=== PATIENT | female | born 1990 | race African-American/Black ===

== ENCOUNTER 2019-08-05 00:13 | Emergency (ER) | payer OTHER ==
[2019-08-05 00:18] VITALS: BP 117/75; RESP 18; TEMP 99
--- NOTE | 2019-08-05 01:12 | ED ---
General Adult HPI - General Chief complaint: Needlestick/Exposure Stated complaint: needlestick, [facility] Time Seen by Provider: 08/05/19 00:47 Source: patient Mode of arrival: ambulatory Limitations: no limitations - History of Present Illness Initial comments: 28-year-old female patient presents to the emergency department today for evaluation after a needlestick injury at work. Patient states she accidentally stuck her index finger with an insulin needle prior to arrival. States she did cleanse the area. She is up to date on her tetanus and hepatitis B vaccines. The source has no known infectious diseases. She did bring source blood for testing. She denies any other symptoms or concerns. - Related Data Home Medications Medication Instructions Recorded Confirmed Levothyroxine Sodium [Synthroid] 88 mcg PO DAILY 09/08/15 09/30/15 Vit No.124/Iron/Folic 1 each PO DAILY 09/08/15 09/30/15 [ Vitamin Tablet] Progesterone [First-Progesterone 200 mg VAGINAL DAILY 09/08/15 09/30/15 Vgs 200] Previous Rx's Medication Instructions Recorded Acetaminophen-Codeine 300-30mg 1 each PO Q4HR PRN #30 tab 10/03/15 [Tylenol w/codeine #3] Ibuprofen [Motrin] 600 mg PO Q6HR PRN #60 tab 10/03/15 Allergies Allergy/AdvReac Type Severity Reaction Status Date / Time No Known Allergies Allergy Verified 09/30/15 20:59 Review of Systems ROS Statement: Those systems with pertinent positive or pertinent negative responses have been documented in the HPI. ROS Other: All systems not noted in ROS Statement are negative. Past Medical History Past Medical History: Thyroid Disorder Additional Past Medical History / Comment(s): Hypothryroid History of Any Multi-Drug Resistant Organisms: None Reported Past Surgical History: No Surgical Hx Reported Additional Past Surgical History / Comment(s): Had a Cerclage placed with this - 2014 Past Anesthesia/Blood Transfusion Reactions: No Reported Reaction Past Psychological History: No Psychological Hx Reported Smoking Status: Never smoker - Past Family History Mother Family Medical History: No Reported History, Asthma, Chest Pain / Angina, Hypertension, Myocardial Infarction ([place]) General Exam Limitations: no limitations General appearance: alert, in no apparent distress Respiratory exam: Present: normal lung sounds bilaterally. Absent: respiratory distress, wheezes, rales, rhonchi, stridor Cardiovascular Exam: Present: regular rate, normal rhythm, normal heart sounds. Absent: systolic murmur, diastolic murmur, rubs, gallop, clicks Extremities exam: Present: normal inspection, full ROM, normal capillary refill. Absent: tenderness, pedal edema, joint swelling, calf tenderness Neurological exam: Present: alert, oriented X3, CN II-XII intact Psychiatric exam: Present: normal affect, normal mood Skin exam: Present: warm, dry, intact, normal color. Absent: rash Course Vital Signs 08/05/19 08/05/19 00:16 01:50 Temperature 99.0 F Pulse Rate 84 78 Respiratory 18 Rate Blood Pressure 117/75 O2 Sat by Pulse 99 100 Oximetry Medical Decision Making - Medical Decision Making 28-year-old female patient presents to the emergency department today for evaluation after experiencing a needlestick injury. We did drop patient's blood for baseline labs. We did have sore spelled available however the rapid HIV testing was not possible with the blood available. Source to be redrawn in the morning to perform rapid test tomorrow. I did inform patient that we will contact her with HIV results and provide prophylaxis of necessary. She'll be discharged to follow-up with employee health services for further evaluation. Return parameters were discussed in detail. She verbalizes understanding and agrees with this plan. Disposition Clinical Impression: Needlestick injury accident Disposition: HOME SELF-CARE Condition: Good Instructions (If sedation given, give patient instructions): Body Substance Exposure (ED) Additional Instructions: Await phone call regarding patient's HIV status. You may have to return for lab testing and prescription for prevention. Follow up with employee health services for further testing. Return to the emergency department for any new, worsening, or concerning symptoms. Is patient prescribed a controlled substance at d/c from ED?: No Referrals: William Levine MD [Primary Care Provider] - 1-2 days Time of Disposition: 01:12
[2019-08-05 01:51] VITALS: PULSE 78
[2019-08-05 14:25] LABS: Hepatitis B Surface AB- Quant 699.4 mIU/mL; Hepatitis B Surface Antibody Reactive (Non-Reactive); Hepatitis C IgG Antibody Non-Reactive (Non-Reactive)
[2019-08-06 11:45] LABS: HIV 1 AB Non-Reactive (Non-Reactive); HIV 2 AB Non-Reactive (Non-Reactive); HIV AB P24 Non-Reactive (Non-Reactive); HIV P24 AG Non-Reactive (Non-Reactive)
== END 2019-08-05 01:51 | disposition home or self-care (01) ==
LOC: EC 00:13
DX: Z77.21 Contact with and (suspected) exposure to potentially hazardous body fluids (principal); E03.9 Hypothyroidism, unspecified; Z79.3 Long term (current) use of hormonal contraceptives; W46.0XXA Contact with hypodermic needle, initial encounter; Y99.0 Civilian activity done for income or pay
CPT/HCPCS: 36415; 86706; 86803; 87390; 99283

== ENCOUNTER → 2020-05-21 | Outpatient (CLI) | payer BC ==
--- NOTE | 2020-05-21 17:38 | ECHOF ---
Referral Reason:R07.9 chest pain MEASUREMENTS -------- HEIGHT: 170.2 cm WEIGHT: 83.0 kg BP: RVIDd: 2.6 cm (< 3.3) IVSd: 1.1 cm (0.6 - 1.1) LVIDd: 3.4 cm (3.9 - 5.3) LVPWd: 1.2 cm (0.6 - 1.1) IVSs: 1.4 cm LVIDs: 2.9 cm LVPWs: 1.5 cm LAESV Index (A-L): 20.01 ml/m Ao Diam: 2.8 cm (2.0 - 3.7) AV Cusp: 2.1 cm (1.5 - 2.6) LA Diam: 2.8 cm (2.7 - 3.8) MV EXCURSION: 19.740 mm (> 18.000) MV EF SLOPE: 140 mm/s (70 - 150) EPSS: 0.4 cm MV E Armand: 0.89 m/s MV DecT: 137 ms MV A Armand: 0.71 m/s MV E/A Ratio: 1.25 RAP: 5.00 mmHg RVSP: 31.29 mmHg FINDINGS -------- Sinus rhythm. This was a technically adequate study. The left ventricular size is normal. Left ventricular wall thickness is normal. Overall left vent ricular systolic function is normal with, an EF between 55 - 60 %. The diastolic filling pattern is normal for the age of the patient 7.43. The right ventricle is normal in size. Normal LA size by volume 22+/-6 ml/m2. The right atrial size is normal. Interatrial and interventricular septum intact. The aortic valve is trileaflet, and appears structurally normal. No aortic stenosis or regurgitation. The mitral valve leaflets are mildly thickened. Mild mitral regurgitation is present. The tricuspid valve appears structurally normal. Mild tricuspid regurgitation present. Right vent ricular systolic pressure is normal at < 35 mmHg. There is no pulmonic regurgitation present. The aortic root size is normal. Normal inferior vena cava with normal inspiratory collapse consistent with estimated right atrial pre ssure of 5 mmHg. There is no pericardial effusion. CONCLUSIONS -------- 1. Left ventricular wall thickness is normal. 2. Overall left ventricular systolic function is normal with, an EF between 55 - 60 %. 3. The diastolic filling pattern is normal for the age of the patient 7.43 4. Normal LA size by volume 22+/-6 ml/m2. 5. The aortic valve is trileaflet, and appears structurally normal. No aortic stenosis or regurgitati on. 6. The mitral valve leaflets are mildly thickened. 7. Mild mitral regurgitation is present. 8. Mild tricuspid regurgitation present. 9. There is no pulmonic regurgitation present. 10. There is no pericardial effusion. FORESTER AIDE: Gudelia Martin RDCS
--- NOTE | 2020-05-24 10:46 | EST ---
EXERCISE STRESS PROCEDURE PERFORMED: Exercise treadmill stress test. INDICATION: Chest pain. STRESS DATA: Heart rate 83, pressure is 102/59 mmHg. Baseline EKG showed sinus rhythm. The patient exercised on the treadmill according to Ron protocol for a total of 7 minutes and achieved 8.05 METS. Max heart rate was 176, which is about 88% of maximum predicted heart rate. Maximum blood pressure was 141/48 mmHg. Clinically the patient did not have any symptoms of chest pain or chest discomfort during the testing or on recovery and the EKG showed mild ST-segment changes, most prominent in the inferior leads. CONCLUSION: 1. Excellent exercise tolerance. 2. Mild EKG changes in response to exercise. MMODL / IJN: [id number] /
== END | disposition home or self-care (01) ==
LOC: RADNMMAIN 10:38
PROVIDERS: ATTEND Family Medicine
DX: I08.1 Rheumatic disorders of both mitral and tricuspid valves (principal)
CPT/HCPCS: 93017; 93306

== ENCOUNTER → 2021-02-23 | Outpatient (CLI) | payer BC ==
--- NOTE | 2021-02-23 16:54 | US ---
EXAMINATION TYPE: US transvaginal DATE OF EXAM: 02/23/2021 COMPARISON: 2011 CLINICAL HISTORY: Z30.431 Encounter for routine checking of IUD. 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 Transvaginal sonographic images Date of LMP: 02/14/2021 EXAM MEASUREMENTS: Uterus: 7.7 x 3.5 x 3.4 cm Endometrial Stripe: 0.6 cm Right Ovary: 2.6 x 2.4 x 2.3 cm Left Ovary: 2.6 x 3.0 x 1.8 cm 1. Uterus: Anteverted IUD seen within lower uterine segment 2. Endometrium: wnl 3. Right Ovary: follicle seen = 1.3cm 4. Left Ovary: follicle seen = 1.7cm 5. Bilateral Adnexa: wnl 6. Posterior cul-de-sac: wnl IMPRESSION: 1. Intrauterine device within the lower uterine segment. Gynecologic evaluation is recommended. 2. Bilateral ovarian follicles. No free fluid is seen.
== END | disposition home or self-care (01) ==
LOC: RADUSWWP 14:23
PROVIDERS: ATTEND Family Medicine
DX: Z30.431 Encounter for routine checking of intrauterine contraceptive device (principal)
CPT/HCPCS: 76830

== ENCOUNTER 2023-04-06 12:16 | Day surgery (SDC) | payer BC ==
[~2023-04-06 12:16] MED LIST: LACTATED RINGERS 1,000 ML IV SCH
[2023-04-06 13:13] VITALS: TEMP 98
[2023-04-06] MEDS ORDERED: LIDOCAINE 2% INJ 20 MG/ML (2 ML VIAL) ONE (14:02)
[2023-04-06] MEDS ORDERED: PROPOFOL 10 MG/ML 20 ML VIAL IV ONE (14:02)
--- NOTE | 2023-04-06 14:15 | P.PCN ---
Date of Procedure: 04/06/23 Procedure(s) Performed: BRIEF HISTORY: Patient is a 32-year-old, pleasant, white female scheduled for an upper endoscopy as a part of evaluation of history of GERD for 2 years duration. She is currently on omeprazole 40 mg daily as well as Pepcid 20 mg twice daily and still remains symptomatic and hence scheduled for an upper endoscopy to rule out complicated reflux disease. PROCEDURE PERFORMED: Esophagogastroduodenoscopy with biopsy PREOPERATIVE DIAGNOSIS: Long-standing history of GERD. IV sedation per anesthesia. PROCEDURE: After informed consent was obtained, the patient was brought into the endoscopy unit. IV sedation was administered by Anesthesia under continuous monitoring. Initially the Olympus GIF-140 video endoscope was inserted into the mouth. Esophagus intubated without any difficulty. It was gradually advanced into the stomach and duodenum and carefully examined. The bulb and the second part of the duodenum appeared normal. The scope at this time was withdrawn to the stomach, adequately insufflated with air, and upon careful examination, mucosa of the antrum, had mild gastritis and biopsies were done from this area. Mucosa of the body, cardia and the fundus appeared normal. The scope was then withdrawn into the esophagus. Small sliding type hiatal hernia noted. The GE junction was located at 36 cm from the incisors. The esophagus appeared normal. There were no erosions or ulcerations seen, biopsies were done from the distal esophagus and the patient tolerated the procedure well. IMPRESSION: 1. Small hiatal hernia but no evidence of esophagitis or Larose's esophagus. 2. Mild antral gastritis. RECOMMENDATIONS: The findings of this examination were discussed with the patient as well as a family. Follow with the biopsy results She was advised to continue with omeprazole 40 mg daily but change to half hour before dinner time and use Pepcid 40 mg at bedtime and follow antireflux measures..
[2023-04-06 14:32] VITALS: RESP 16
[2023-04-06 14:52] VITALS: BP 116/82; PULSE 85
== END 2023-04-06 14:56 | disposition home or self-care (01) ==
LOC: ORWHC2ENDO 12:16
PROVIDERS: ATTEND Internal Medicine Gastroenterology
DX: K29.50 Unspecified chronic gastritis without bleeding (principal); K21.9 Gastro-esophageal reflux disease without esophagitis; K44.9 Diaphragmatic hernia without obstruction or gangrene; E03.9 Hypothyroidism, unspecified; I10 Essential (primary) hypertension; E78.5 Hyperlipidemia, unspecified; Z79.899 Other long term (current) drug therapy; Z88.5 Allergy status to narcotic agent; Z98.890 Other specified postprocedural states
CPT/HCPCS: 81025; 43239; J2704; J2001; 88305

== ENCOUNTER → 2023-07-20 | Outpatient (CLI) | payer BC ==
[~2023-07-20] MED LIST changes: +IRON SUCROSE 200 MG in SODIUM CHLORIDE 0.9% 100 ML IVPB NR; -LACTATED RINGERS 1,000 ML IV SCH; +SODIUM CHLORIDE 0.9% 500 ML 500 ML in EMPTY BAG 1 BAG IV PRN
[2023-07-20 13:08] VITALS: BP 124/73; PULSE 89; RESP 16; TEMP 98.6
== END ==
LOC: PROCWHC3 12:31
PROVIDERS: ATTEND Family Medicine
DX: D50.9 Iron deficiency anemia, unspecified (principal)
CPT/HCPCS: 96374; J1756